=== PATIENT | female | born 1975 | race Caucasian/White ===

== ENCOUNTER 2019-05-18 05:59 | Day surgery (SDC) | payer SELFPAY ==
--- NOTE | 2019-05-17 14:12 | EKG12_ITS ---
Test Reason : PREOP Blood Pressure : / mmHG Vent. Rate : 069 BPM Atrial Rate : 069 BPM P-R Int : 146 ms QRS Dur : 076 ms QT Int : 378 ms P-R-T Axes : 017 015 012 degrees QTc Int : 405 ms Normal sinus rhythm with sinus arrhythmia Normal ECG No previous ECGs available Confirmed by PAMELA ALCALA, ALYCIA ([id number]), writer editor ADIA MUKHERJEE ([id number]) on 05/22/2019 1:31:17 PM Referred By: Jevon Meneses Confirmed By:ALYCIA SANTIAGO MD
[2019-05-17 15:45] LABS: Hematocrit 39.9 % (37-47); Hemoglobin 12.8 g/dL (12.0-15.0); Mean Corp Hgb Conc 32.1 g/dL (32-36); Mean Corpuscular Hgb 29.2 pg (27.0-32.0); Mean Corpuscular Volume 91.1 fL (81-99); Mean Platelet Vol. 10.8 fl (6.2-12.0); Platelet Count 280 K/mm3 (150-450); RBC Distribution Width CV 12.7 % (11.6-14.6); RBC Distribution Width SD 42.5 fl (35.1-43.9); Red Blood Count 4.38 M/mm3 (4.2-5.4); White Blood Count 5.4 K/mm3 (4.4-11.0)
[2019-05-17 15:56] LABS: Prothrombin Time (Protime)PT. 12.7 SECONDS (11.7-14.9)
[2019-05-17 15:57] LABS: Partial Thromboplast Time 28.7 Seconds (24.1-36.2)
[2019-05-17 16:11] LABS: Creatinine, Serum 0.66 mg/dL (0.55-1.02); EST Glomerular Filtration Rate 104 mL/min (>60); Est Glom Filt Rate - Afr Amer 125 mL/min (>60)
--- NOTE | 2019-05-17 17:18 | HP.PCM_ITS ---
History and Physical Date of Admission: 05/18/19 Surgical History and Physical Date: 05/17/2019 Name: KANDI CAMARGO Age: 44 Date of : 1975 Kandi Camargo, a 44 year old female 7 0 1 0 7, presents for L/S BSO on May 18, 2019 at 7:30. -- Painful Ovarian Cysts -- Ovarian Cysts which began several years. Kandi claims it started gradually and has been present cysts on US. It occurs all the time. It is located in the lower abdomen. Kandi characterizes it to be non-radiating. Kandi characterizes the quality pressure/pain/discomfort. Severity is moderate and very concerned; Additional comments are: Referred by Dr. Sonia Garcia.; Additional comments are: prior hysterectomy; u/s shows 6.8 cm right ovary now with a second small cyst; left ovary normal. Confirmed cysts sill present on 05/17/19. Had prior surgery with mesh to umbilicus. MEDICATIONS HISTORY: Current medications prescribed by our practice are: 1. Ortho-Cyclen (28) 0.25 mg-35 mcg tablet, One pill by mouth once a day ALLERGIES: prednisone, Rash, azithromcin, Numbness, Codeine, Numbness, face, Azithromycin, Numbness, Prednisone and Rash Infections - Chicken pox and Whooping Cough Illnesses - Spina Bifida Acculta, Back pain, Mild Depression Accidents - no injuries of consequence Hospitalizations - see surgery Review of Systems: GENERAL - Denies fever, or chills SKIN - Denies skin changes EYES - Denies visual changes EARS - Denies difficulty hearing NOSE - Denies nasal congestion or bleeding MOUTH - Denies sore throat or difficulty swallowing NECK - Denies pain or swelling RESPIRATORY - Denies shortness of breath or wheezing CARDIOVASCULAR - Denies palpitations or chest pain GASTROINTESTINAL - Denies nausea, vomiting, diarrhea, constipation GENITOURINARY - Denies dysuria, frequency of urination, incontinence of urine MUSCULOSKELETAL - Denies joint or muscle pain NEUROLOGICAL - Denies localized numbness or weakness PSYCHIATRIC - Denies depression or anxiety ENDOCRINE - Denies heat or cold intolerance, weight loss or gain HEMATO-IMMUNOLOGIC - Denies excesive bleeding with cuts SOCIAL HISTORY: Alcohol Use - denies drinking Smoking - Never Diet - balanced Diet Lifestyle - low stress lifestyle Exercise - minimal Seat Belt Use - always Employer - homemaker Illicit Drug Use - denies use of street drugs Sexual Activity - Spouse-Sig Other Name - Telly Urena Spouse-Sig Other Occupation - [employer] Children Name(s) - Rosalie Mildred, Toyin Lashay, Carmen Olivia, Jose, Liya, Meg Control - Vasectomy and Prior Hysterectomy FAMILY HISTORY: Mother: Hypertension. Sister: Uterine Fibroids, Cysts. MENSTRUAL HISTORY: LMP Known?- Prior Hysterectomy, Prior Menses - 10/02/2011, LMP - 12/01/11 PAST PREGNANCIES: Total Pregnancies - 8; Full Term Pregnancies - 7; Premature - 0; Abortions, Induced - 0; Abortions, Spontaneous - 1; Ectopics - 0; Multiple Births - 0; Living Children - 7 SURGICAL HISTORY: 1. hernia, 2010 ; - 2. 02/21/1995 ; Dr. Lex Nolasco - [facility] 3. 12/01/2011 vaginal hysterectomy ; Jevon Meneses M.D. - . 2012 Back Surgery ; - PHYSICAL EXAM BP- 140/90 Sitting, Right arm, regular cuff Temp- 98.2 Taken Orally Weight- 194.56159 lbs Height- 66.00 inch BMI:31.38 CONSTITUTIONAL - NAD, well nourished, and well developed SKIN - No rash, lesions, or ulcers HEENT - Normocephalic, PERRLA, EOMI NECK - no nodes, no nuchal rigidity and thyroid normal size and texture LYMPH NODES - Palpation of lymph nodes in neck and groins within normal limits LUNGS - CTA x2 without wheezes, crackles or rales CARDIAC - Regular rate and rhythm without rubs, murmurs, or gallops ABDOMEN - Without hepatosplenomegaly, distention, masses, rebound, or guarding; normal bowel sounds, no hernias EXTREMITIES - No edema or calf tenderness NEUROLOGICAL - Cranial nerves II-XII grossly intact PSYCHIATRIC - A and O to time, place, person, mood and affect External Genitial Vagina - non-tender without lesions Urethra/Urethral Meatus - non-tender Bladder - non-tender Vagina - vaginal colin are pink and moist without loss of rugae and no evidence of atropy Cervix - Prior hysterectomy-well healed vaginal cuff Uterus - prior hysterectomy-absent Adnexa - no masses and tenderness both adnexa ASSESSMENT/PLAN: 1. Ovarian Cyst Nos Uncertain if functional or endometriosis or other pathology. Failed expectant management and will proceed with L/S BSO. Discussed RBAs and all questions answered including need for terminal block assembler HRT.
[2019-05-18] VITALS (8 sets, daily range): BP systolic 125–156; BP diastolic 79–85; PULSE 49–76; RESP 16–18; TEMP 36.1–36.4; O2SAT 93–99; BMI 31.2
[2019-05-18] MEDS: Lactated Ringers 1,000 ML 100 ML IV ×2 (06:49→09:50)
--- NOTE | 2019-05-18 07:30 | OV_PTH ---
PATIENT: DAVID FLORIAN LOC: [facility] U#:[id number] AGE/SX: 44/F ROOM: RE05/18/[address]: Dr. Jevon Meneses MD : 1975 BED: DIS: 05/18/2019 SPEC #: [id number] RECD: 05/18/19 10:53 STATUS: EMANUEL REKatie #: [id number] SUZETTE: 05/18/19 07:[address]: Jevon Meneses DEPT: SURGICAL PATHOLOGY RECD BY: Esteban Dupont ENTERED: 05/18/19 11:14 SP TYPE: OVARY OTHR DR: Dr. Yina Matos MD Tissues: Ovary, NOS Procedures: Surgery Specimen Level V HEADER OPERATION: Laparoscopic salpingo-oophorectomy PRE-OP DIAGNOSIS: Ovarian cyst TISSUE SUBMITTED: Bilateral fallopian tubes and ovaries MICROSCOPIC DIAGNOSIS Bilateral fallopian tubes and ovaries, bilateral salpingo-oophorectomy: Collapsed cyst, consistent with simple serous cystadenoma. Fallopian tubes fragments, no pathologic diagnosis. Additional fragment of ovarian tissue, no pathologic diagnosis. ZAYRA:aaron 05/19/19 MICROSCOPIC DESCRIPTION Slides are reviewed. GROSS DESCRIPTION Received in fixative is one container labeled with the patient's name and designated bilateral fallopian tubes and ovaries. The specimen consists of multiple pieces. One of the pieces is consistent with fallopian tube which measures 5.5 cm in length and 0.5 cm in diameter. The fimbrial end is not identified. Sections reveal unremarkable cut surfaces. A second piece of tissue consists of collapsed cyst measuring 5 x 2 x 0.3 cm. The cyst wall appears smooth. No papillations are identified. There are multiple pieces of vela-pink soft tissue measuring in aggregate 4.5 x 3.5 x 0.5 cm. These pieces could not be identified ? possible fragments of fallopian tube. Chief Development Officer sections are submitted in five cassettes as follows: 1 - fallopian tube, 2 - collapsed cyst, 3-5 - detached portion of tissue, entirely submitted. / ZAYRA:aaron 05/18/19 TC:1 CPT: 02400
[2019-05-18] MEDS: Ropivacaine 0.5% 30 ML Vial (07:44)
--- NOTE | 2019-05-18 08:44 | OP.PCM_ITS ---
Report of Operation Date of Procedure: 05/18/19 Pre-Operative Diagnosis: Pelvic Pain, Right Ovarian Cyst Post-Operative Diagnosis: Pelvic Pain, Right Ovarian Cyst, Adhesions Surgery/Procedure Performed:: Diagnostic Laparoscopy, Bilateral Salpingo- Oophorectomy, Lysis of Adhesions Description of Surgical Findings:: 4 to 5 cm simple right ovarian cyst. Adhesions of right and left ovaries to pelvic sidewalls. Adhesions of left fallopian tube to rectosigmoid and rectosigmoid to left ovary. No adhesions were noted in the area of the patient's periumbilical hernia mesh. Absent uterus. No endometriosis implants visualized. assistant clinical nurse manager: Jose G Mac Type of Anesthesia:: General - Endotracheal Anesthesiologist: Larry Albarado Specimen's removed: Bilateral fallopian tubes and ovaries. Estimated Blood Loss (mL): Minimal Fluids Replaced: Crystalloid Description of Procedure: This is a 44-year-old patient status post hysterectomy who presents with severe pelvic pain which has lasted for several weeks. Ultrasound revealed a 5 cm right ovarian simple cyst. Patient has been maintained on ibuprofen for her pain. Given this, the patient desires proceeding with surgery with possible removal of her bilateral fallopian tubes and ovaries as well as the right ovarian cyst. Separately, the patient had an umbilical hernia repaired with mesh previously. The patient has been counseled regarding the risk and indications of this procedure including the possibility of bleeding, infection, and injury to surrounding structures such as bowel bladder. All questions were answered. Patient was taken to the operating room where after induction of general anesthesia she was placed in the dorsal lithotomy position and prepped and draped in the usual sterile fashion. The bladder was drained of approximately 150 cc of clear yellow urine with a red rubber catheter. Attention was turned for the laparoscopic portion procedure. Approximately 18 cc of half percent bupivacaine was injected approximately 10 cm left lateral and 2 cm superior to the umbilicus. A 5 mm blade less trocar was introduced directly and intraperitoneal placement confirmed with CO2 insufflation and visualization through the laparoscope. The pelvis was examined and there were noted to be no adhesions near the umbilicus. A 5 mm blade less Ethicon trocar was then introduced subumbilically and suprapubically again under direct visualization. The above findings were noted. The infundibulopelvic ligament on the left was ligated with an Enseal device. Some of the right ovary may have remained as it was densely adhered to the right pelvic sidewall. Initially, it was felt that the left ovary may have been removed at the time of the hysterectomy. However after close examination and lysis of some adhesions between the sigmoid and left pelvic sidewall, the left fallopian tube and ovary were visualized and after sharp and blunt dissection the adhesions were removed sufficiently to remove the left fallopian tube and most of the left ovary. Fallopian tubes and pieces of the ovaries were removed through the 5 mm suprapubic port after opening the cyst from the right ovary and draining clear fluid. There was noted to be some oozing and the pelvis was copiously irrigated. FloSeal was used to help with postoperative hemostasis. Upper abdomen was examined and noted to be normal. Laparoscopic instruments with as much CO2 gas possible orders removed. Incisions were closed with interrupted 4-0 Monocryl suture and Steri-Strips placed across the incision. Patient tolerated procedure well taken to recovery room in satisfactory condition. Sponge instrument and needle counts were all reportedly correct. Blood loss for the case was minimal. There were no apparent complications of the surgery. Specimen to pathology was bilateral fallopian tubes, right ovarian cyst, partial right and left ovaries. Cefotan 2 g IV was given prior to beginning the operative procedure Grafts/Implants Used: None - Complications None - Admit VTE Documentation VTE Present on Admission: Yes VTE Mechan Device Prophylaxis: SCD's
--- NOTE | 2019-05-18 08:59 | DCINST_ITS ---
Discharge Diet: No Restrictions Discharge Activity: Return to Normal Activity, May not drive while taking narcotic pain medications., May Shower, May Take a Tub Bath Additional Activity Instructions:: Ambulate often the next week after surgery. Nothing in the vagina for 5 days. Call your doctor if your incision/area has: Continuous Slow Oozing, Sudden Increased Bleeding, Increased Pain/ Swelling, Increased Redness, Foul Smelling Discharge Call your doctor if you observe: Fever of 101 or Higher, Inability to urinate, Inability to have a bowel movement Allergies/Adverse Reactions: Allergies codeine Allergy (Verified 05/18/19 06:38) numbness of mouth and swelling erythromycin base Allergy (Verified 05/18/19 06:38) Swelling prednisone Allergy (Verified 05/18/19 06:38) Swelling Medications to take at Discharge Calcium Carbonate [Calcium] 600 mg PO DAILY 05/17/19 Ibuprofen 600 mg PO Q6H 05/17/19 Vitamin B Complex 1 ea PO DAILY 05/17/19 Oxycodone [Oxyir] 5 mg PO Q6H PRN PRN 7 Days #10 tab 05/18/19 The following prescriptions were given: Oxycodone [Oxyir] 5 mg PO Q6H PRN PRN 7 Days #10 tab PRN Reason: Severe Pain (6-10/10) Prescription Printed Orders to be completed after discharge: 12 Lead EKG [[facility]] Time Frame: 05/17/19, Facility: [facility], Location: Cardiovascular Services Basic Metabolic Profile (BMP) Time Frame: 05/17/19, Facility: [facility], Location: Laboratory CBC-Complete Blood Cnt No Diff Time Frame: 05/17/19, Facility: [facility], Location: Laboratory Primary Care Physician: Yina Matos MD [Primary Care Provider] - Test Results: Test results from this visit will be discussed in further detail at your follow- up appointment, if applicable. Please Follow Up With: Jevon Meneses MD - [phone] When: 2 to 3 weeks
[2019-05-18] MEDS: oxyCODONE 5 MG Tablet PO (10:26)
== END 2019-05-18 12:23 | disposition home or self-care (01) ==
LOC: SDC 06:05 → AC 06:08
PROVIDERS: Referring Provider Obstetrics & Gynecology; Visit Provider Obstetrics & Gynecology
PROC: (CPT 58661; principal; 2019-05-18 07:15)
DX: N83.291 Other ovarian cyst, right side (principal); N73.6 Female pelvic peritoneal adhesions (postinfective); R10.2 Pelvic and perineal pain; Z90.710 Acquired absence of both cervix and uterus
CPT/HCPCS: 00840; 58661; 36415; 82565; 85027; 85610; 85730; 86850; 86900; 86901; 88305; 88307; 93005; J7120; C1760; J2405

== ENCOUNTER → 2019-06-28 | Outpatient (CLI) | payer SELFPAY ==
[2019-05-18 06:38] VITALS: BMI 31.2
[2019-06-28 15:40] LABS: Follicle Stimulating Hormone 102.3 mIU/mL
== END | disposition home or self-care (01) ==
LOC: WOBLAB 11:18
PROVIDERS: Visit Provider Obstetrics & Gynecology
DX: R10.32 Left lower quadrant pain (principal)
CPT/HCPCS: 36415; 83001

== ENCOUNTER → 2024-01-14 | Outpatient (CLI) | payer SELFPAY ==
--- NOTE | 2024-01-14 07:30 | EKG12_ITS ---
Test Reason : PREOP Blood Pressure : / mmHG Vent. Rate : 088 BPM Atrial Rate : 088 BPM P-R Int : 150 ms QRS Dur : 070 ms QT Int : 356 ms P-R-T Axes : 029 027 011 degrees QTc Int : 430 ms Normal sinus rhythm Normal ECG Confirmed by ALYCIA SANTIAGO MD ([id number]), editor magazine MYAH SYED ([id number]) on 01/14/2024 10:41:10 AM Referred By: Jimbo Li Confirmed By:ALYCIA SANTIAGO MD
[2024-01-14 08:11] LABS: Hematocrit 40.9 % (37-47); Hemoglobin 13.5 g/dL (12.0-15.0); Mean Corpuscular Hgb 29.1 pg (27.0-32.0); Mean Corpuscular Volume 88.1 fL (81-99); Mean Platelet Vol. 9.8 fl (6.2-12.0); Platelet Count 287 K/mm3 (150-450); RBC Distribution Width CV 13.2 % (11.6-14.6); Red Blood Count 4.64 M/mm3 (4.2-5.4); White Blood Count 6.3 K/mm3 (4.4-11.0)
[2024-01-14 08:27] LABS: Anion Gap 5 (5-15); BUN 13 mg/dL (7-18); BUN/Creat Ratio 17.3 RATIO (10-20); Calcium,Total 9.4 mg/dL (8.5-10.1); Chloride 108 mmol/L (98-107); Creatinine, Serum 0.75 mg/dL (0.55-1.02); EST Glomerular Filtration Rate 87 mL/min (>60); Est Glom Filt Rate - Afr Amer 105 mL/min (>60); Glucose 92 mg/dL (74-106); Potassium 3.9 mmol/L (3.5-5.1); Sodium Level 142 mmol/L (136-145)
== END | disposition home or self-care (01) ==
PROVIDERS: PCP Nurse Practitioner Family; Referring Provider Physician Assistant Surgical; Visit Provider Physician Assistant Surgical
DX: Z01.818 Encounter for other preprocedural examination (principal)
CPT/HCPCS: 36415; 80048; 85027; 93005